=== PATIENT | male | born 1945 | race Caucasian/White ===

== ENCOUNTER 2016-11-16 10:07 | Emergency (ER) | payer MEDICARE, OTHER ==
[2016-11-16 10:46] LABS: APPEARANCE,URINE Clear (CLEAR); COLOR,URINE Yellow (YELLOW); OCCULT BLOOD,URINE 1+ (NEGATIVE); UROBILINOGEN URINE 0.2 Eu (0.2-1.0)
[2016-11-16] MEDS ORDERED: KETOROLAC TROMETHAMINE 30 MG/1ML VIAL IVP ONE (10:48)
[2016-11-16] MEDS ORDERED: 0.9 % SODIUM CHLORIDE 1,000 ML IV ONE (10:48)
[2016-11-16] MEDS ORDERED: TAMSULOSIN HCL 0.4 MG CAP.ER.24H PO ONE (11:32)
--- NOTE | 2016-11-16 11:41 | ED Physician Documentation ---
Male Genitourinary Problems - HISTORIAN Historian: patient - HPI Stated Complaint: R flank pain Chief Complaint: Male Genitourinary Problems Onset: hours (0900) Duration: continues in ED Severity: moderate Further Comments: yes (71 year old male patient presents with right flank pain, radiating to groin. Patient states the pain started at 0900, sudden onset, denies history of renal calculi.) - Associated Symptoms Problems Urinating: none Testicular Pain: none Testicular Swelling: none Inguinal Mass: No Abdominal Pain: none - Sexual History Sexual History: non-contributory - ROS CONST: none GI/: denies: nausea, vomiting MS/SKIN/LYMPH: none CVS/RESP: none EYES/ENT: none NEURO/PSYCH: denies: fainting, dizziness, tingling, numbness, anxiety, depression, other - PAST HX Past History: denies: erectile dysfunction Cardiac Disease: none Surgeries/Procedures: other (Right inguinal hernia) Allergies/Adverse Reactions: Allergies Allergy/AdvReac Type Severity Reaction Status Date / Time No Known Allergies Allergy Verified 10/27/13 20:42 Home Medications: Ambulatory Orders Medication Instructions Recorded Aspirin [Aspir 81] 81 mg PO DAILY u2 03/04/15 Tamsulosin HCl [Flomax] 0.4 mg PO [id number] #7 cap.er.24h 11/16/16 - SOCIAL HX Smoking History: non-smoker - FAMILY HX Family History: denies: none - VITAL SIGNS Vital Signs: Vital Signs Temp Pulse Resp BP Pulse Ox 98.5 F 60 16 140/79 99 11/16/16 12:26 11/16/16 12:26 11/16/16 12:26 11/16/16 12:26 11/16/16 12:26 - REVIEWED ASSESSMENTS Nursing Assessment Reviewed: Yes Vitals Reviewed: Yes Progress - Progress Progress: Reviewed CT results with patient and , questions answered. Patient states pain has resolved after IV fluids and toradol. Up to bathroom, voided - no c/o pain. Flomax started in ER. Reviewed discharge instructions, questions answered. Disk and report to patient for follow up. Education on straining urine. ED Results Lab/Radiology - Lab Results Lab Results: Lab Results 11/16/16 10:25 Urine Color Yellow (YELLOW) Urine Appearance Clear (CLEAR) Urine pH 7.0 (5.0 - 8.0) Ur Specific Devon 1.020 (1.010-1.030) Urine Protein 1+ mg/dL H mg/dL (NEGATIVE) Urine Ketones Negative mg/dL mg/dL (NEGATIVE) Urine Occult Blood 1+ H (NEGATIVE) Urine Nitrite Negative (NEGATIVE) Urine Bilirubin Negative (NEGATIVE) Urine Urobilinogen 0.2 Eu Eu (0.2-1.0) Ur Leukocyte Esterase Negative (NEGATIVE) Urine RBC 2-5 H (0-2 HPF) Urine WBC 2-5 (0-5 HPF) Ur Squamous Epith Cells Few (NEG-FEW) Urine Glucose Negative mg/dL mg/dL (NEGATIVE) - Radiology Radiology Impressions: EXAMINATION: CT abdomen and pelvis without contrast. HISTORY: Right-sided abdomen pain and flank pain TECHNIQUE: Transaxial computed tomographic images of the abdomen pelvis were obtained without the use of intravenous contrast according to standard protocol. FINDINGS: The lung bases are clear. The heart size is normal. The liver, gallbladder, pancreas, spleen, and adrenal glands are normal. There is a right ureterovesicular junction calculus present measuring 7 mm resulting in right hydronephrosis and hydroureter. There is 2 nonobstructing left intrarenal calculi present measuring 3 mm. Diverticular present throughout the colon without CT evidence of acute diverticulitis. The appendix is not identified. The unenhanced vascular structures normal. There is no adenopathy present. Fat and fluid containing left inguinal hernia is present. There is degenerative change in the lower lumbar spine. IMPRESSION: 1. 7 mm right ureterovesicular junction calculus resulting in right hydronephrosis and hydroureter. 2. Nonobstructing left intrarenal calculi. 3. Diverticulosis without diverticulitis. Electronically signed on Nov 16, 2016 11:22:46 AM AUTOMOBILE WRECKER by: Mike Conner - Orders Orders: ED Orders Category Date Time Status Place Saline Lock/IV NOW Care 11/16/16 10:[address] ABD & PELVIS W/O CON Stat Exams 11/16/16 Completed UA W/MICRO IF INDICATED Stat Lab 11/16/16 10:25 Completed 0.9 % Sodium Chloride [Normal Saline] 1,000 ml Med 11/16/16 10:48 Discontinued IV NOW Ketorolac Tromethamine [Toradol] Med 11/16/16 10:48 Discontinued 30 mg IVP NOW ONE Tamsulosin HCl [Flomax] Med 11/16/16 11:32 Discontinued 0.4 mg PO NOW ONE Male Genitourinary Problems - EXAM General Appearance: mild distress Abdomen: non-tender, no organomegaly EENT: eye inspection normal, ENT inspection normal, pharynx normal, no signs of dehydration, JESSIAC, no nystagmus, TM's nml CVS: reg rate & rhythm, heart sounds normal, equal pulses, no murmur, no gallop , PMI nml, no JVD, no friction rub, 24 Back: CVA tenderness (right). 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 Increase your fluid intake to at least 64 oz of water a day Strain all urine. If the stone is passed, place it in a specimen cup and take it to your primary care physician for analysis. You may take tylenol or ibuprofen as needed for discomfort. Discharged with Rx for [place] 5/325mg 1-2 tabs q4-6 prn #21 Home Medications: Ambulatory Orders Aspirin [Aspir 81] 81 mg PO DAILY u2 03/04/15 Tamsulosin HCl [Flomax] 0.4 mg PO [id number] #7 cap.er.24h 11/16/16 Condition: Stable Disposition: 01 HOME, SELF-CARE Decision to Admit: NO Decision Time: 11:58
[2016-11-16 12:28] VITALS: BP 140/79
--- NOTE | 2016-11-16 15:04 | Diagnostic Imaging Report ---
[facility] [address] [facility] [address] Report Submission Date: Nov 16, 2016 11:22:46 AM AUTOMOTIVE SERVICES MANAGER Patient Study Name: MAYURI GARDNER Date: Nov 16, 2016 10:52:33 AM AUTOMOTIVE SERVICES MANAGER Modality Type: CT\SR Gender: M Description: CT ABD & PELVIS W/O CO : 47 Institution: [facility] Physician EASTON CORONA (CODING QUALITY COORDINATOR) - ER EXAMINATION: CT abdomen and pelvis without contrast. HISTORY: Right-sided abdomen pain and flank pain TECHNIQUE: Transaxial computed tomographic images of the abdomen pelvis were obtained without the use of intravenous contrast according to standard protocol. FINDINGS: The lung bases are clear. The heart size is normal. The liver, gallbladder, pancreas, spleen, and adrenal glands are normal. There is a right ureterovesicular junction calculus present measuring 7 mm resulting in right hydronephrosis and hydroureter. There is 2 nonobstructing left intrarenal calculi present measuring 3 mm. Diverticular present throughout the colon without CT evidence of acute diverticulitis. The appendix is not identified. The unenhanced vascular structures normal. There is no adenopathy present. Fat and fluid containing left inguinal hernia is present. There is degenerative change in the lower lumbar spine. IMPRESSION: 1. 7 mm right ureterovesicular junction calculus resulting in right hydronephrosis and hydroureter. 2. Nonobstructing left intrarenal calculi. 3. Diverticulosis without diverticulitis. Electronically signed on Nov 16, 2016 11:22:46 AM AUTOMOTIVE SERVICES MANAGER by: Mike RUELAS
== END 2016-11-16 12:21 | disposition home or self-care (01) ==
LOC: ED 10:07
DX: N20.0 Calculus of kidney (principal)
CPT/HCPCS: 74176; 81002; J1885; J7030; 96361; 96374; 99283; 99284; S1016

== ENCOUNTER 2017-02-15 08:16 | Day surgery (SDC) | payer MEDICARE, OTHER ==
--- NOTE | 2017-02-15 12:21 | GI Report ---
REFERRING PHYSICIAN: Dr. Arvind Marti COMIC BOOK DESIGNER: Uday Carlos MD PROCEDURE MEDICATION: Propofol as per anesthesia. INDICATIONS: A 71-year-old is referred. He had a colonoscopy 10 years ago. He denies changes in stools or blood in the stool. This is a screening colonoscopy. PROCEDURE PERFORMED: Colonoscopy and cold biopsy and polyp removal. PROCEDURE: An Olympus video colonoscope was advanced to the rectum. He does have moderate diverticular disease of the sigmoid and descending colon. The colonoscope was advanced all the way to the cecum. In the cecum, the patient has a little flat 2 to 3 mm polyp that was cold biopsy removed in 2 pieces. The terminal ileum looks normal. On slow withdrawal, the cecum, ascending colon, and transverse colon, only saw the 1 polyp, otherwise normal appearing mucosa. Descending colon and sigmoid with extensive diverticular disease. No obvious diverticulitis. Retroflexion of the rectum was normal. Patient tolerated the procedure well. FINDINGS: 1. Small polyp removed from the cecum. 2. Moderate diverticular disease of the sigmoid and descending colon. RECOMMENDATIONS: 1. Increase bulk fiber in the diet. 2. Consider re-looking at his colon in 5 years pending the pathology of the polyp. 3. Follow up with Dr. Marti. cc: Dr. Arvind Marti [facility]
== END 2017-02-15 08:17 ==
LOC: OPSURG 08:16
PROVIDERS: ATTEND Internal Medicine Gastroenterology
DX: Z12.11 Encounter for screening for malignant neoplasm of colon (principal); D12.0 Benign neoplasm of cecum
CPT/HCPCS: 45385; 88305; J2704; J7120; S1016

== ENCOUNTER 2017-05-14 13:46 | Emergency (ER) | payer MEDICARE, OTHER ==
[2017-05-14] MEDS ORDERED: ASPIRIN 81 MG CHEW TAB ONE (13:49)
[2017-05-14] MEDS ORDERED: HEPARIN SODIUM,PORCINE/D5W 20,000 UNIT/500 ML BAG IV ONE (13:49)
[2017-05-14 14:46] LABS: BASOPHILS % 0.6 (0.0-1.5); EOSINOPHILS % 1.3 % (0.0-6.8); MEAN CORPUSCULAR HEMOGLOBIN 31.5 pg (28.0-34.0); MEAN CORPUSCULAR VOLUME 91.1 fl (80.0-100.0); MONOCYTES % 3.3 % (0.0-11.0)
[2017-05-14] MEDS: 0.9 % SODIUM CHLORIDE 1,000 ML IV ONE (14:59)
[2017-05-14] MEDS: TAMSULOSIN HCL 0.4 MG CAP.ER.24H PO ONE (14:59)
[2017-05-14] MEDS: KETOROLAC TROMETHAMINE 30 MG/1ML VIAL IVP ONE (15:00)
[2017-05-14] MEDS: ONDANSETRON HCL/PF 4 MG/ 2ML VIAL IVP ONE (15:00)
[2017-05-14] MEDS: HYDROmorphone HCL/PF 1 MG/ML DISP.SYRIN IVP ONE (15:00)
[2017-05-14 15:08] LABS: eGFR (African) > 60; eGFR (Non-African) > 60
--- NOTE | 2017-05-14 15:37 | Diagnostic Imaging Report ---
ADRIANA BELL [facility] [address] [facility] [address] [place], [place]. [address] Report Submission Date: May 14, 2017 3:22:38 PM CDT Patient Study Name: MAYURI GARDNER Date: May 14, 2017 3:02:50 PM CDT Modality Type: CT\SR Gender: M Description: CT ABD & PELVIS W/O CO : 47 Institution: [facility] Physician: ADRIANA BELL CT abdomen and pelvis without contrast CLINICAL HISTORY: Bilateral flank pain worse on the right. Nausea and vomiting since this morning. History of kidney stones. TECHNIQUE: CT of the abdomen and pelvis is performed without oral or intravenous administration of contrast. Sagittal and coronal reconstructions are performed by the technologist. Comparison is made to a prior study of 11/16/2016. FINDINGS: Visualized lung bases are clear. Small diaphragmatic hernia is again seen on the right posteriorly with herniation of small amount of fat. Liver and spleen demonstrate normal attenuation without focal defect. The gallbladder is contracted, but otherwise unremarkable. There is no pancreatic or adrenal abnormality. There are multiple left intrarenal calculi. The right collecting system is distended with stranding in the right perinephric fat. Right ureter is distended to the level of the bladder. There is an 8 mm stone at the right ureterovesical junction without significant change since the prior study. This stone is evident on the drawbench operator helper image. Obstructive uropathy appears worse since the prior examination. The bladder is otherwise unremarkable. Multiple diverticula are seen in the descending and sigmoid colon without evidence of diverticulitis. IMPRESSION: 8 mm stone at the right ureterovesical junction with right obstructive uropathy. Multiple left intrarenal calculi. Diverticulosis. Vascular calcification. Electronically signed on May 14, 2017 3:22:38 PM CDT by: Agustín RUELAS
--- NOTE | 2017-05-14 16:58 | ED Physician Documentation ---
Flank Pain - HISTORIAN Historian: patient - HPI Stated Complaint: right flank Chief Complaint: Flank Pain Additional Information: started right flank pain today Onset: hours (4) Duration: constant Timing: still present Context: denies: out of country travel, bad food, recent trauma Severity: moderate Quality: aching, other (like previous kidney stone) Associated Symptoms: nausea Exacerbated by: nothing Relieved by: nothing Further Comments: yes - ROS CONST: no problems GI/: none CVS/RESP: none EYES/ENT: none MS/SKIN/LYMPH: none NEURO/PSYCH: none - SOCIAL HX Smoking History: non-smoker Alcohol Use: none Drug Use: none - FAMILY HX Family History: no significant history - PAST HX Past History: kidney stones Ischemic Bowel Risk Factors: none Other History: hyperlipidemia, hypertension Surgeries/Procedures: none Immunizations: referred to PCP Medications: none Allergies: NKDA - VITAL SIGNS Vital Signs: Vital Signs Temp Pulse Resp BP Pulse Ox 52 L 16 175/102 97 05/14/17 14:30 05/14/17 14:30 05/14/17 14:30 05/14/17 14:30 - REVIEWED ASSESSMENTS Nursing Assessment Reviewed: Yes Vitals Reviewed: Yes Progress - Results/Orders Results/Orders: cbc, cmp, ua, ct og abd/pelvis ordered - Progress Progress: Pt. given 1 liter NS, Toradol 30 mg IV, 1 mg Dilaudid IV, Flomax 0.4 mg p.o., Zofran 8 mg IVP in ER with resolution of pain. Critical Care Note - Critical Care Note Total Time (mins): 0 ED Results Lab/Radiology - Lab Results Lab Results: Lab Results 05/14/17 05/14/17 14:45 14:45 WBC 10.50 K/ul K/ul (4.00-12.00) RBC 4.77 M/ul M/ul (3.90-5.20) Hgb 15.0 g/dL g/dL (12.0-18.0) Hct 43.5 % % (37.0-53.0) MCV 91.1 fl fl (80.0-100.0) MCH 31.5 pg pg (28.0-34.0) MCHC 34.6 g/dL g/dL (30.0-36.0) RDW 12.9 % % (11.3-14.3) Plt Count 223 K/mm3 K/mm3 (130-400) Neut % (Auto) 85.2 % H % (39.0-79.0) Lymph % (Auto) 8.7 % L % (16.0-50.0) Lyon % (Auto) 3.3 % % (0.0-11.0) Eos % (Auto) 1.3 % % (0.0-6.8) Baso % (Auto) 0.6 (0.0-1.5) Neut # (Auto) 9.0 # k/uL H # k/uL (1.4-7.7) Lymph # (Auto) 0.9 # k/uL # k/uL (0.6-4.0) Lyon # (Auto) 0.4 # k/uL # k/uL (0.0-0.9) Eos # (Auto) 0.1 # k/uL # k/uL (0.0-0.6) Baso # (Auto) 0.1 # k/uL # k/uL (0.0-0.5) Reactive Lymphs % 0.9 % % (0.0-5.0) Reactive Lymphs # 0.1 # k/uL # k/uL (0.0-0.8) Sodium 140 mmol/L mmol/L (136-145) Potassium 3.9 mmol/L mmol/L (3.5-5.0) Chloride 108 mmol/L mmol/L (98-110) Carbon Dioxide 21 mmol/L mmol/L (20-32) BUN 19 mg/dL mg/dL (10-26) Creatinine 1.2 mg/dL mg/dL (0.4-1.5) Estimated Creat Clear 55 Est GFR ( Amer) > 60 (60 - ) Est GFR (Non-Af Amer) > 60 (60 - ) Glucose 137 mg/dL H mg/dL (70-99) Calcium 10.5 mg/dL mg/dL (8.5-10.5) Total Bilirubin 0.8 mg/dL mg/dL (0.2-1.2) AST 23 U/L U/L (0-41) ALT 22 U/L U/L (0-45) Alkaline Phosphatase 96 U/L U/L (46-116) Total Protein 7.6 g/dL g/dL (6.0-8.5) Albumin 5.1 g/dL g/dL (3.0-5.5) - Radiology Radiology Impressions: ct abdomen shows right sided ureterovessicular junction stone - Orders Orders: ED Orders Category Date Time Status Place IV Lock 1T Care 05/14/17 14:[address] ABD & PELVIS W/O CON Stat Exams 05/14/17 Completed CBC/PLATELET/DIFF Routine Lab 05/14/17 14:45 Completed CMP Routine Lab 05/14/17 14:45 Completed URINALYSIS Routine Lab 05/14/17 14:34 Ordered 0.9 % Sodium Chloride [Normal Saline] 1,000 ml Med 05/14/17 14:34 Discontinued IV Q1H Aspirin Med 05/14/17 13:49 Discontinued 324 mg .ROUTE .STK-MED ONE HYDROmorphone HCL/PF [Dilaudid] Med 05/14/17 14:34 Discontinued 1 mg IVP NOW ONE Heparin Sodium,Porcine/D5w [Heparin] Med 05/14/17 13:49 Discontinued 20,000 unit in 500 ml IV .STK-MED Ketorolac Tromethamine [Toradol] Med 05/14/17 14:34 Discontinued 30 mg IVP NOW ONE Ondansetron HCl/Pf [Zofran 4 mg/2 ml] Med 05/14/17 14:34 Discontinued 8 mg IVP NOW ONE Tamsulosin HCl [Flomax] Med 05/14/17 14:34 Discontinued 0.4 mg PO NOW ONE Abdominal Pain Physical Exam - Physical Exam General Appearance: alert, moderate distress EENT: eye inspection normal, ENT inspection normal, pharynx normal, no signs of dehydration, JESSICA NECK: normal inspection, thyroid normal, supple RESPIRATORY: no resp distress, chest non-tender, breath sounds normal CVS: reg rate & rhythm, heart sounds normal, equal pulses, no murmur ABDOMEN: soft, no organomegaly, normal bowel sounds, no abdominal bruit, no distension, non-tender BACK: CVA tenderness (R) SKIN: warm/dry, normal color EXTREMITIES: non-tender, normal range of motion, no evidence of injury, no edema NEURO: oriented X3, CN's nml as tested, motor nml, sensation nml, mood/affect nml Vital Signs: Vital Signs Temp Pulse Resp BP Pulse Ox 52 L 16 175/102 97 05/14/17 14:30 05/14/17 14:30 05/14/17 14:30 05/14/17 14:30 Discharge Clincal Impression: kidney stone Referrals: Arvind Marti MD [Primary Care Provider] - 2 Days Additional Instructions: strain urine Home Medications: Ambulatory Orders Aspirin [Aspir 81] 81 mg PO DAILY u2 03/04/15 Tamsulosin HCl [Flomax] 0.4 mg PO [id number] #7 cap.er.24h 11/16/16 Comments: Discharged with scripts for Toradol 1 pill 4x/day, Percocet 1 pill 4x/day as needed for pain, pt. to continue Flomax daily Condition: Stable Disposition: 01 HOME, SELF-CARE Decision to Admit: NO Decision Time: 16:59
[2017-05-14 17:17] VITALS: BP 160/90
== END 2017-05-14 17:08 | disposition home or self-care (01) ==
LOC: ED 13:46
DX: N20.0 Calculus of kidney (principal)
CPT/HCPCS: 74176; 80053; 85025; J1170; J1644; J1885; J2405; J7030; 96361; 96365; 96375; 99283; S1016

== ENCOUNTER 2017-11-01 09:51 | Outpatient (CLI) | payer MEDICARE, OTHER ==
[2017-11-01 11:06] LABS: eGFR (African) > 60; eGFR (Non-African) > 60
== END 2017-11-01 09:52 ==
LOC: LAB 09:51
PROVIDERS: ATTEND Family Medicine
DX: E78.5 Hyperlipidemia, unspecified (principal); I10 Essential (primary) hypertension; R53.82 Chronic fatigue, unspecified
CPT/HCPCS: 36415; 80053; 80061; 84439; 84443; 84481

== ENCOUNTER 2019-01-30 09:52 | Outpatient (CLI) | payer MEDICARE, OTHER ==
[2019-01-30 10:26] LABS: eGFR (Non-African) > 60
== END 2019-01-30 09:54 ==
LOC: LAB 09:52
PROVIDERS: ATTEND Family Medicine
DX: I10 Essential (primary) hypertension (principal); Z00.00 Encounter for general adult medical examination without abnormal findings; Z12.5 Encounter for screening for malignant neoplasm of prostate
CPT/HCPCS: 36415; 80053; 80061; 84153